=== PATIENT | female | born 1940 | race Caucasian/White ===

== ENCOUNTER 2017-08-05 13:19 | Observation (INO) | payer OTHER ==
[2017-08-05 13:58] LABS: PLATELET COUNT 253 10^3/uL (150-400)
[2017-08-05] MEDS ORDERED: NS 1,000 ML IV ONE (14:12)
--- NOTE | 2017-08-05 14:20 | EDPHY ---
H & P Stated Complaint: memory deficits this morning Source: Patient Exam Limitations: No limitations - Personal History Current Tetanus/Diphtheria Vaccine: Yes - Medical/Surgical History Hx Asthma: No Hx Chronic Respiratory Disease: No Hx Diabetes: No Hx Cardiac Disease: No Hx Renal Disease: No Hx Cirrhosis: No Hx Alcoholism: No Hx HIV/AIDS: No Hx Splenectomy or Spleen Trauma: No Other PMH: High cholesterol, hypothyroid, low blood pressure - Family History Significant Family History: No pertinent family hx - Social History Smoking Status: Never smoked Alcohol Use: Sober Drug Use: None Time Seen by Provider: 08/05/17 14:20 HPI/ROS: CHIEF COMPLAINT: Memory loss HISTORY OF PRESENT ILLNESS: Patient is a 76-year-old healthy female who comes to the emergency department her complaining of memory loss. The patient does not remember the events of earlier this morning or last night. states that she was very lucid in even had several phone conversations with [place] and with family members up until around 11:30 when he found her standing in her underwear asking what they were doing. She denies any pain. No headache. No focal weakness or deficits. She does state that she gets frequent urine infections. No recent dysuria. No fever. No trauma. No chest pain. She has not had any new medications. No alcohol or drugs. REVIEW OF SYSTEMS: Constitutional: denies: chills, fever, recent illness, recent injury EENTM: denies: blurred vision, double vision, nose congestion Respiratory: denies: cough, shortness of breath Cardiac: denies: chest pain, irregular heart rate, lightheadedness, palpitations Gastrointestinal/Abdominal: denies: abdominal pain, diarrhea, nausea, vomiting, blood streaked stools Genitourinary: denies: dysuria, frequency, hematuria, pain Musculoskeletal: denies: joint pain, muscle pain Skin: denies: lesions, rash, jaundice, bruising Neurological: denies: headache, numbness, paresthesia, tingling, dizziness, weakness Hematologic/Lymphatic: denies: blood clots, easy bleeding, easy bruising Immunologic/allergic: denies: HIV/AIDS, transplant EXAM: GENERAL: Well-appearing, well-nourished and in no acute distress. HEAD: Atraumatic, normocephalic. EYES: Pupils equal round and reactive to light, extraocular movements intact, sclera anicteric, conjunctiva are normal. ENT: TMs normal, nares patent, oropharynx clear without exudates. Moist mucous membranes. NECK: Normal range of motion, supple without lymphadenopathy or JVD. LUNGS: Breath sounds clear to auscultation bilaterally and equal. No wheezes rales or rhonchi. HEART: Regular rate and rhythm without murmurs, rubs or gallops. ABDOMEN: Soft, nontender, normoactive bowel sounds. No guarding, no rebound. No masses appreciated. BACK: No CVA tenderness, no spinal tenderness, step-offs or deformities EXTREMITIES: Normal range of motion, no pitting or edema. No clubbing or cyanosis. NEUROLOGICAL: Cranial nerves II through XII grossly intact. Normal speech, normal gait. 5/5 strength, normal movement in all extremities, normal sensation PSYCH: Normal mood, normal affect. SKIN: Warm, dry, normal turgor, no visible rashes or lesions. (Mesfin Dia) Constitutional: Initial Vital Signs Temperature (C) 36.8 C 08/05/17 13:19 Heart Rate 72 08/05/17 13:19 Respiratory Rate 16 08/05/17 13:19 Blood Pressure 181/78 H 08/05/17 13:19 O2 Sat (%) 94 08/05/17 13:19 O2 Delivery Mode Room Air Allergies/Adverse Reactions: No Known Allergies Allergy (Verified 08/05/17 15:39) Home Medications: Medication Instructions Recorded C/E/Zn/Cu/OM3/DHA/EPA/LUT/ZEAX 1 each PO DAILY 08/05/17 [Preservision Areds 2 Softgel] Herbals/Supplements -Info Only 1 ea PO DAILY@16 08/05/17 LORazepam [Ativan (*)] 1 mg PO DAILY PRN 08/05/17 Levothyroxine [Synthroid 50 mcg 50 mcg PO DAILY06 08/05/17 (*)] Naproxen Sodium [Aleve 220 MG (*)] 220 mg PO BID PRN 08/05/17 Rosuvastatin Calcium [Crestor 20mg 20 mg PO DAILY@16 08/05/17 (*)] Medical Decision Making - Diagnostics Imaging: Discussed imaging studies w/ supervisor dry cleaning Radiologist - Diagnostics EKG Interpretation: An EKG obtained and was read and documented in trace view. Please see trace view for full reading and report. Sinus rhythm, no acute ischemic changes ( Mesfin Dia) Imaging Results: Noncontrast head CT reviewed by me and discussed with Dr. Marion shows no evidence for intracranial bleeding (Anderson Mercado) ED Course/Re-evaluation: 3:00 p.m. the patient seems to be improving to some degree. She now remembers making dinner last night. Her lab work thus far is unremarkable. I will order a head CT and admit for global amnesia. Her NIH stroke score 0. She is alert and oriented to place and time and date etc. I discussed the case with Dr. Soto Saravia who will admit to the medical service. (Mesfin Dia) Differential Diagnosis: Partial list of the Differential diagnosis considered include but were not limited to; amnesia, urinary tract infection, medication reaction and although unlikely based on the history and physical exam, I also considered seizure, stroke, migraine. I discussed these differential diagnoses and the plan with the patient as well as the usual and expected course. The patient understands that the diagnosis is provisional and that in medicine we are not always correct and that further workup is often warranted. Usual and customary warnings were given. All of the patient's questions were answered. The patient was instructed to return to the emergency department should the symptoms at all worsen or return, otherwise to followup with the physician as we discussed. (Mesfin Dia) - Data Points Laboratory Results: Laboratory Results 08/05/17 13:32 08/05/17 13:32 Medications Given: Discontinued Medications Acetaminophen (Tylenol) 650 mg PO Q6 PRN PRN Reason: Pain, Mild/Fever, Can Take PO Stop: 02/01/18 21:08 Last Admin: 08/06/17 08:53 Dose: 650 mg Sodium Chloride (Ns) 1,000 mls @ 0 mls/hr IV ONCE ONE; Wide Open PRN Reason: Protocol Stop: 08/05/17 14:13 Last Admin: 08/05/17 14:31 Dose: 1,000 mls Levothyroxine Sodium (Synthroid) 50 mcg PO DAILY06 CHANDNI Stop: 02/02/18 05:59 Last Admin: 08/06/17 05:29 Dose: 50 mcg Multivitamins/Minerals (Preservision Areds2 Formula) 1 each PO DAILY CHANDNI Stop: 02/02/18 08:59 Last Admin: 08/06/17 08:52 Dose: 1 each Naproxen (Aleve) 220 mg PO BID PRN PRN Reason: Pain, Moderate Stop: 02/01/18 16:27 Last Admin: 08/05/17 18:24 Dose: 220 mg Departure - Departure Disposition: [facility] Acute Clinical Impression: Amnesia memory loss Condition: Fair
--- NOTE | 2017-08-05 14:32 | CPEKG ---
Heart Rate: 67 RR Interval: 896 P-R Interval: 124 QRSD Interval: 82 QT Interval: 416 QTC Interval: 439 P [place]: 61 QRS [place]: -33 T Wave [place]: 23 EKG Severity - OTHERWISE NORMAL ECG - EKG Impression: SINUS RHYTHM EKG Impression: LEFT AXIS DEVIATION Electronically Signed By: Mesfin Dia 05-Aug-2017 14:58:15
--- NOTE | 2017-08-05 15:32 | PDGENHP ---
History and Physical - Chief Complaint confusion - History of Present Illness 76 y/o female without significant past medical history was brought to the ED by her after she wasn't acting. She reports gaps in her memory from this morning. Recalls waking up and doing back stretching, but does not remember what happened after that. Denies recent stressful event. Denies alcohol or illicit substance use. Currently Jacqueline feels "frustrated", but otherwise feels fine. No fever or chills. No headache. Denies urinary complaints. History Information - Allergies/Home Medication List Allergies/Adverse Reactions: No Known Allergies Allergy (Verified 08/05/17 15:39) Home Medications: C/E/Zn/Cu/OM3/DHA/EPA/LUT/ZEAX [Preservision Areds 2 Softgel] 1 each PO DAILY [Last Taken Unknown] Herbals/Supplements -Info Only 1 ea PO DAILY@16 08/05/17 [Last Taken 08/04/17] LORazepam [Ativan (*)] 1 mg PO DAILY PRN 08/05/17 [Last Taken 08/01/17] Levothyroxine [Synthroid 50 mcg (*)] 50 mcg PO DAILY06 08/05/17 [Last Taken ] Naproxen Sodium [Aleve 220 MG (*)] 220 mg PO BID PRN 08/05/17 [Last Taken ] Rosuvastatin Calcium [Crestor 20mg (*)] 20 mg PO DAILY@16 08/05/17 [Last Taken 08/04/17] I have personally reviewed and updated: family history, medical history, social history, surgical history - Past Medical History hyperlipidemia Additional medical history: hypothyroidism, hypotension, l4/l5 ruptured discs - Surgical History Additional surgical history: rtka, tonsilectomy - Family History Additional family history: father of a heart condition - Social History Smoking Status: Never smoked Alcohol Use: Sober Drug Use: None Review of Systems Review of Systems: ROS: 10pt was reviewed & negative except for what was stated in HPI & below Physical Exam Physical Exam: Temp Pulse Resp BP Pulse Ox 36.8 C 72 16 181/78 H 94 08/05/17 13:19 08/05/17 13:19 08/05/17 13:19 08/05/17 13:19 08/05/17 13:19 Constitutional: no apparent distress, appears nourished, not in pain Eyes: PERRL, anicteric sclera, EOMI Ears, Nose, Mouth, Throat: moist mucous membranes, hearing normal, ears appear normal, no oral mucosal ulcers Cardiovascular: regular rate and rhythym, no murmur, rub, or gallop, No edema Respiratory: no respiratory distress, no rales or rhonchi, clear to auscultation Gastrointestinal: normoactive bowel sounds, soft, non-tender abdomen, no palpable masses Genitourinary: no bladder fullness, no bladder tenderness Skin: warm, normal color, no rashes or abrasions, no fluctuance, no induration, No mottled Musculoskeletal: full muscle strength, no muscle tenderness, normal joint ROM, no joint effusions Neurologic: AAOx3, CN II-XII Intact, No facial droop Psychiatric: interacting appropriately, not anxious, not encephalopathic, thought process linear Lymph, Heme, Immunologic: no cervical LAD, no supraclavicular LAD Lab Data & Imaging Review 08/05/17 13:32 08/05/17 13:32 WBC 6.12 10^3/uL (3.80-9.50) 08/05/17 13:32 RBC 4.86 10^6/uL (4.18-5.33) 08/05/17 13:32 Hgb 14.2 g/dL (12.6-16.3) 08/05/17 13:32 Hct 43.5 % (38.0-47.0) 08/05/17 13:32 MCV 89.5 fL (81.5-99.8) 08/05/17 13:32 MCH 29.2 pg (27.9-34.1) 08/05/17 13:32 MCHC 32.6 g/dL (32.4-36.7) 08/05/17 13:32 RDW 12.7 % (11.5-15.2) 08/05/17 13:32 Plt Count 253 10^3/uL (150-400) 08/05/17 13:32 MPV 10.0 fL (8.7-11.7) 08/05/17 13:32 Neut % (Auto) 58.1 % (39.3-74.2) 08/05/17 13:32 Lymph % (Auto) 28.1 % (15.0-45.0) 08/05/17 13:32 [place] % (Auto) 8.5 % (4.5-13.0) 08/05/17 13:32 Eos % (Auto) 3.8 % (0.6-7.6) 08/05/17 13:32 Baso % (Auto) 1.3 % (0.3-1.7) 08/05/17 13:32 Nucleat RBC Rel Count 0.0 % (0.0-0.2) 08/05/17 13:32 Absolute Neuts (auto) 3.56 10^3/uL (1.70-6.50) 08/05/17 13:32 Absolute Lymphs (auto) 1.72 10^3/uL (1.00-3.00) 08/05/17 13:32 Absolute Monos (auto) 0.52 10^3/uL (0.30-0.80) 08/05/17 13:32 Absolute Eos (auto) 0.23 10^3/uL (0.03-0.40) 08/05/17 13:32 Absolute Basos (auto) 0.08 10^3/uL (0.02-0.10) 08/05/17 13:32 Absolute Nucleated RBC 0.00 10^3/uL (0-0.01) 08/05/17 13:32 Immature Gran % 0.2 % (0.0-1.1) 08/05/17 13:32 Immature Gran # 0.01 10^3/uL (0.00-0.10) 08/05/17 13:32 Sodium 142 mEq/L (135-145) 08/05/17 13:32 Potassium 4.4 mEq/L (3.5-5.2) 08/05/17 13:32 Chloride 105 mEq/L (97-110) 08/05/17 13:32 Carbon Dioxide 24 mEq/l (22-31) 08/05/17 13:32 Anion Gap 13 mEq/L (8-16) 08/05/17 13:32 BUN 19 mg/dL (7-23) 08/05/17 13:32 Creatinine 0.8 mg/dL (0.6-1.0) 08/05/17 13:32 Estimated GFR > 60 08/05/17 13:32 Glucose 81 mg/dL (70-100) 08/05/17 13:32 Calcium 9.4 mg/dL (8.5-10.4) 08/05/17 13:32 TSH 4.710 uIU/mL (0.465-4.680) H 08/05/17 13:32 Free T4 1.29 ng/dL (0.59-2.19) 08/05/17 13:32 Urine Color COLORLESS 08/05/17 14:30 Urine Appearance CLEAR 08/05/17 14:30 Urine pH 6.0 (5.0-7.5) 08/05/17 14:30 Ur Specific [place] 1.003 (1.002-1.030) 08/05/17 14:30 Urine Protein NEGATIVE (NEGATIVE) 08/05/17 14:30 Urine Ketones NEGATIVE (NEGATIVE) 08/05/17 14:30 Urine Blood NEGATIVE (NEGATIVE) 08/05/17 14:30 Urine Nitrate NEGATIVE (NEGATIVE) 08/05/17 14:30 Urine Bilirubin NEGATIVE (NEGATIVE) 08/05/17 14:30 Urine Urobilinogen NEGATIVE EU (0.2-1.0) 08/05/17 14:30 Ur Leukocyte Esterase NEGATIVE (NEGATIVE) 08/05/17 14:30 Urine RBC NONE SEEN /hpf (0-3) 08/05/17 14:30 Urine WBC 1-3 /hpf (0-3) 08/05/17 14:30 Ur Epithelial Cells TRACE /lpf (NONE-1+) 08/05/17 14:30 Urine Glucose NEGATIVE (NEGATIVE) 08/05/17 14:30 Ethyl Alcohol < 10 mg/dL (0-10) 08/05/17 13:32 Visualized and Interpreted imaging results: Yes Interpretation: head ct: Impression: 1. No intracranial hemorrhage, subdural hematoma or evidence of ischemia. 2. Mild atrophy. Visualized and Interpreted EKG results: Yes EKG Interpretation: Positive for: normal sinsus rhythm (67 bpm). Negative for: ST elevation, ST depression Assessment & Plan Assessment: This is a 76 y/o female presenting with: #Amnesia memory loss (Acute) suspect Transient Global Amnesia now with resolution of symptoms and a normal neurologic exam Plan: -will place in observation -neuro checks #H/o hypothyroidism with slight elevation of tsh and normal free t4 -cont home dose of thyroid replacement and f/u with pcp Upon further review it appears that patient is on Ativan. I did not question her to see if she may have inadvertently overdosed. This is something that should be explored.
[2017-08-05] MEDS ORDERED: NAPROXEN SODIUM 220 MG TAB PO PRN (16:28)
[2017-08-05] MEDS ORDERED: LORazepam 1 MG TAB PO PRN (16:28)
[2017-08-05] MEDS: ACETAMINOPHEN 325 MG TAB PO PRN (21:19)
--- NOTE | 2017-08-05 21:20 | HOSPPROG ---
Hospitalist Progress Note Objective: Vital Signs Temp Pulse Resp BP Pulse Ox 36.5 C 71 16 133/77 H 92 08/05/17 19:56 08/05/17 19:56 08/05/17 19:56 08/05/17 19:56 08/05/17 19:56 08/04/17 08/05/17 08/06/17 05:59 05:59 05:59 Intake Total 1000 Output Total 100 Balance 900 ICD10 Worksheet Patient Problems: Problems Problem Status Onset Amnesia memory loss Acute
[2017-08-06 04:36] VITALS: RESP 16
[2017-08-06] MEDS ORDERED: LEVOTHYROXINE 50 MCG TAB PO SCH (06:00)
[2017-08-06] MEDS: ACETAMINOPHEN 325 MG TAB PO PRN (08:53)
[2017-08-06] MEDS ORDERED: PRESERVISION AREDS2 FORMULA EYE VIT 1 EACH PO SCH (09:00)
--- NOTE | 2017-08-06 11:22 | HOSPPROG ---
Hospitalist Progress Note Assessment/Plan: This is a 76 y/o female presenting with: #Amnesia memory loss (Acute) suspect Transient Global Amnesia now with resolution of symptoms and a normal neurologic exam Plan: -will have her f/u with Dr Brown -she will get more imaging with his group, #H/o hypothyroidism with slight elevation of tsh and normal free t4 -cont home dose of thyroid replacement and f/u with pcp #Plan: reviewed her care w neurology, plan is for her to f/u with them. Get a repeat TSH in 6 weeks Subjective: Jacqueline feels well, has no complaints. Objective: Vital Signs Temp Pulse Resp BP Pulse Ox 36.1 C 60 16 127/72 H 93 08/06/17 07:46 08/06/17 07:46 08/06/17 07:46 08/06/17 07:46 08/06/17 07:46 08/05/17 08/06/17 08/07/17 05:59 05:59 05:59 Intake Total 1000 Output Total 100 Balance 900 - Physical Exam Constitutional: no apparent distress, appears nourished, not in pain Eyes: PERRL Ears, Nose, Mouth, Throat: hearing normal Cardiovascular: regular rate and rhythym Respiratory: no respiratory distress Skin: warm Musculoskeletal: full muscle strength Neurologic: AAOx3, sensation intact bilaterally, CN II-XII Intact, No weakness, No pronator drift, No facial droop Psychiatric: interacting appropriately, thought process linear ICD10 Worksheet Patient Problems: Problems Problem Status Onset Amnesia memory loss Acute
[2017-08-06 12:20] VITALS: BP 137/81; PULSE 61; TEMP 97.3; O2SAT 95
--- NOTE | 2017-08-06 14:17 | GDS ---
[f rep st] DISCHARGE SUMMARY DISCHARGE DIAGNOSES: 1. Amnesia, memory loss secondary to transient global amnesia. 2. Hypothyroidism with elevation of her TSH. HISTORY: Briefly, The patient is a 76-year-old female who has a history of hypothyroidism and hyperl ipidemia. She was brought to the emergency room after she had gaps in her memory in the morning. Pe r her , she had a normal morning. They engaged in sexual activity, and afterwards she had a l apse in her memory that lasted for several hours. He initially was concerned that she had a stroke, except that she did not have any of the symptoms except memory loss. He brought her to the emergency room where a CT scan was performed. This showed nothing acute. I reviewed her care with Neurology. The recommendation is, because she had no neurologic deficits during my evaluation, to follow up wi th them. She will need an MRI and EEG. I reviewed with the patient and her if she should bustamante ve any stroke-like symptoms to return to the emergency room. HOSPITAL COURSE PER PROBLEM: 1. Amnesia. This is likely secondary to transient global amnesia with complete resolution of her sy mptoms. Further followup with Dr. Brown. 2. History of hypothyroidism with elevation of her TSH and normal free T4. Have recommended that ricco harris get a repeat TSH in 6 weeks with her primary care provider. DISCHARGE CONDITION: Stable. Blood pressure is 123/72, O2 sat on room air 92%, respiratory rate is 16, pulse 60, temperature 36.1 Celsius. MEDICATIONS AT DISCHARGE: Please see the EMR. DISCHARGE INSTRUCTIONS: 1. Repeat TSH in 6 weeks. 2. Further followup with Neurology, Dr. Brown. 3. If she develops any stroke-like symptoms, to return to the ER. Copy requested to: Dr. Brown /[id number]/MODL
[2017-08-06] MEDS ORDERED: Herbals/Supplements -Info Only PO SCH (16:00)
[2017-08-06] MEDS ORDERED: ROSUVASTATIN CALCIUM 20 MG TAB PO SCH (16:00)
== END 2017-08-06 13:08 | disposition home or self-care (01) ==
LOC: F3N 15:46
PROVIDERS: ADMIT Family Medicine; ATTEND Family Medicine
DX: R41.3 Other amnesia (principal); E03.9 Hypothyroidism, unspecified
CPT/HCPCS: 70450; 93005; 96360; 97116; 97161; 97165; 99285; G0378; G8978; G8979; G8980; G8987; G8988; G8989; G0480

== ENCOUNTER → 2017-09-08 | Outpatient (CLI) | payer OTHER ==
--- NOTE | 2017-09-08 16:15 | CPEEG ---
[f rep st] ELECTROENCEPHALOGRAM DATE OF STUDY: 09/08/2017 INTERPRETATION: This 4-hour video EEG recording is essentially normal. There were no potentially ep ileptogenic abnormalities present during the recording during the awake or sleep recordings. During the video EEG monitoring session, the patient did not have any clinical events. REPORT: This 4-hour video EEG contains 9 Hz alpha over the posterior head regions. There was no abn ormal activation at rest, during photic stimulation or hyperventilation. The patient became drowsy a nd fell asleep during the study. During drowsiness, the patient had bitemporal theta transients, max imal left. This is a normal drowsy pattern. There was no abnormal activation during drowsiness, dur ing sleep or times of arousal. The patient did not have any clinical events during the video EEG mon itoring session. /[id number]/MODL
== END ==
LOC: FCPNEURO 07:43
PROVIDERS: ATTEND Psychiatry & Neurology Neurology
DX: G45.4 Transient global amnesia (principal)

== ENCOUNTER → 2017-09-16 | Outpatient (CLI) | payer OTHER | LOC: FIMAGING 14:42 | PROVIDERS: ATTEND Psychiatry & Neurology Neurology | DX: G31.9 Degenerative disease of nervous system, unspecified (principal); R90.82 White matter disease, unspecified ==